=== PATIENT | female | born 1970 ===

== ENCOUNTER 2018-12-25 18:40 | Emergency (ER) | payer OTHER ==
[2018-12-25 18:44] VITALS: BP 152/92; PULSE 76; RESP 16; TEMP 98.9; O2SAT 99
--- NOTE | 2018-12-25 19:34 | ED PDOC ---
Upper Extremity Pain/Injury Time Seen by Provider: 12/25/18 19:30 Chief Complaint (Nursing): Upper Extremity Problem/Injury Chief Complaint (Provider): Upper Extremity Problem/Injury History Per: Patient History/Exam Limitations: no limitations Onset/Duration Of Symptoms: Hrs (x2) Current Symptoms Are (Timing): Still Present Quality: "Pain" Additional Complaint(s): 48 year old female with no significant past medical history presents to the ED for evaluation. Patient was at her son's soccer game around 5:30 when she got excited and started clapping really hard. She noticed her left 4th digit started to swell and bruise and she was unable to take off her rings. Patient came to the ED after she failed to remove rings with oil, soap and Windex. PMD: none provided Past Medical History Reviewed: Historical Data, Nursing Documentation, Vital Signs Vital Signs: Last Vital Signs Temp 98.9 F 12/25/18 18:43 Pulse 76 12/25/18 18:43 Resp 16 12/25/18 18:43 BP 152/92 H 12/25/18 18:43 Pulse Ox 99 12/25/18 18:43 Primary Care Provider: FAMILY PROVIDER,NO - Medical History PMH: No Chronic Diseases - Family History Family History: States: Unknown Family Hx - Home Medications Home Medications: Ambulatory Orders Medication Instructions Recorded Famotidine [Pepcid] 20 mg PO BID #20 tab 07/29/16 Naproxen [Naprosyn] 500 mg PO Q12 PRN #20 tablet 07/29/16 Ondansetron [Zofran] 4 mg PO Q8H PRN #10 tab 07/29/16 Ibuprofen [Motrin] 400 mg PO Q6H PRN #30 tab 12/25/18 - Allergies Allergies/Adverse Reactions: Allergies Allergy/AdvReac Type Severity Reaction Status Date / Time No Known Allergies Allergy Verified 12/25/18 18:42 Review of Systems ROS Statement: Except As Marked, All Systems Reviewed And Found Negative Musculoskeletal: Positive for: Other (left fourth digit swelling and bruising) Physical Exam - Reviewed Nursing Documentation Reviewed: Yes Vital Signs Reviewed: Yes - Physical Exam Appears: Positive for: No Acute Distress Head Exam: Positive for: ATRAUMATIC, NORMOCEPHALIC Skin: Positive for: Normal Color, Warm, Dry Eye Exam: Positive for: Normal appearance Extremity: Positive for: Capillary Refill (less than 2 seconds), Other (left 4th digit: swelling and bruising between the MCP and PIP, 2 rings were unable to be removed, full ROM of finger) - ECG O2 Sat by Pulse Oximetry: 99 (RA) Pulse Ox Interpretation: Normal Medical Decision Making Medical Decision Making: Time: 1934 --Attempted to remove ring with lubricant jelly and was unsuccessful. Had to resort to cutting the ring with a battery operated and manual ring cutter. Patient tolerated procedure well. and patient were in agreement of cutting rings. Both rings were removed and given to . Patient instructed to ice finger. Offered x-ray, but patient refused. She was given 400 mg Motrin in ER, no further workup needed. Patient discharge home in good condition with a prescription for Motrin. Advised to continue icing at home. Patient understands and is in agreement with plan, return parameters given. Scribe Attestation: Documented by Jazzmine Calderon acting as a scribe for [facility] Provider Scribe Attestation: All medical record entries made by the Scribe were at my direction and personally dictated by me. I have reviewed the chart and agree that the record accurately reflects my personal performance of the history, physical exam, medical decision making, and the department course for this patient. I have also personally directed, reviewed, and agree with the discharge instructions and disposition. Disposition - Clinical Impression Clinical Impression: Finger injury, Ring or other jewelry causing external constriction, initial encounter - Patient ED Disposition Is Patient to be Admitted: No Counseled Patient/Family Regarding: Diagnosis, Rx Given - Disposition Disposition: Routine/Home Disposition Time: 19:30 Condition: GOOD Prescriptions: Ibuprofen [Motrin] 400 mg PO Q6H PRN #30 tab PRN Reason: Pain, Moderate (4-7) Instructions: Common Finger Injuries Print Language: BULGARIAN - POA Present On Arrival: None
== END 2018-12-25 20:42 | disposition home or self-care (01) ==
LOC: H.ER 18:40
DX: S60.455A Superficial foreign body of left ring finger, initial encounter (principal); W49.04XA Ring or other jewelry causing external constriction, initial encounter; Y92.89 Other specified places as the place of occurrence of the external cause